=== PATIENT | female | born 1975 | race American Indian/Alaskan Native ===

== ENCOUNTER 2019-08-01 17:12 | Emergency (ER) | payer SELFPAY ==
[2019-08-01] MEDS ORDERED: ASPIRIN PO ONE (17:34)
[2019-08-01 17:36] VITALS: BP 111/68
--- NOTE | 2019-08-01 17:36 | Event Note ---
ED Screening Note Date of service: 08/01/19 Time: 17:33 ED Screening Note: This is a 43 y.o. F. that presents to the ER with chest pain radiating to back x 1 week. PMH of anemia Reports dizziness and SOB This initial assessment/diagnostic orders/clinical plan/treatment(s) is/are subject to change based on patients health status, clinical progression and re- assessment by fellow clinical providers in the ED. Further treatment and workup at subsequent clinical providers discretion. Patient/guardian urged not to elope from the ED as their condition may be serious if not clinically assessed and managed. Initial orders include: Labs, EKG, & CXR
--- NOTE | 2019-08-01 18:09 | XRay Report ---
CHEST 2 VIEWS INDICATION / CLINICAL INFORMATION: Chest Pain. COMPARISON: None available. FINDINGS: SUPPORT DEVICES: None. HEART / MEDIASTINUM: No significant abnormality. LUNGS / PLEURA: No significant pulmonary or pleural abnormality. .No pneumothorax. ADDITIONAL FINDINGS: No significant additional findings. IMPRESSION: 1. No acute findings. Signer Name: Devaughn Beal MD Signed: 08/01/2019 6:04 PM Workstation Name: [id number]
== END 2019-08-01 18:00 | disposition left against medical advice (07) ==
LOC: ED 17:12
DX: R07.89 Other chest pain (principal); Z53.21 Procedure and treatment not carried out due to patient leaving prior to being seen by health care provider
CPT/HCPCS: 71045; 93005; 93010

== ENCOUNTER 2019-08-03 20:03 | Emergency (ER) | payer OTHER ==
--- NOTE | 2019-08-03 20:59 | Event Note ---
ED Screening Note Date of service: 08/03/19 Time: 20:59 ED Screening Note: This is a 43 y.o. F. that presents to the EAR with palpitations and chest pain x 1 week. Patient states both parents have CAD and stents placed and fearful. Reports pain is substernal and radiating to back, cramping sensation. Taken antacids with no improvement. This initial assessment/diagnostic orders/clinical plan/treatment(s) is/are subject to change based on patients health status, clinical progression and re- assessment by fellow clinical providers in the ED. Further treatment and workup at subsequent clinical providers discretion. Patient/guardian urged not to elope from the ED as their condition may be serious if not clinically assessed and managed. Initial orders include: Labs, EKG, & CXR
[2019-08-03] MEDS ORDERED: ASPIRIN PO ONE (21:02)
[2019-08-03 21:32] LABS: Mean Corpuscular HGB Conc 29 % (30-34); Platelet Count 384 K/mm3 (140-440); Red Blood Count 4.75 M/mm3 (3.65-5.03)
[2019-08-03 21:33] LABS: Hematocrit 27.6 % (30.3-42.9); Hemoglobin 8.1 gm/dl (10.1-14.3); Mean Corpuscular Volume 58 fl (79-97); Red Cell Distribution Width 20.6 % (13.2-15.2)
[2019-08-03 21:39] LABS: BUN/Creatinine Ratio 14; Blood Urea Nitrogen 11 mg/dL (7-17); Calcium 9.1 mg/dL (8.4-10.2); Hemolysis Index 1
[2019-08-03 22:04] LABS: Anisocytosis 1+; Basophils % (Manual) 0 % (0.0-1.8); Hypochromasia 2+; Total Cells Counted 100
--- NOTE | 2019-08-04 00:10 | Emergency Department Report ---
ED General Adult HPI - General Chief complaint: Arrhythmia/Palpitations Stated complaint: HEART FLUTTERING, LIGHT HEADED, CHEST PAINS, SOB Time Seen by Provider: 08/03/19 20:58 Source: patient Mode of arrival: Ambulatory Limitations: No Limitations - History of Present Illness Initial comments: Patient is a 43-year-old female that presents emergency room with complaints of epigastric pain, lightheadedness, palpitations and shortness of breath. Patient states her epigastric pain and lightheadedness and palpitations for one week. Patient states her shortness breath while 2 days. Patient denies pain at this time. Patient states that while she was sitting in the waiting room she had a large burp and all of her symptoms improved. Patient states she has a history of anemia. Patient states she is unable to tolerate ferrous sulfate. Patient states her symptoms are worse with eating fried foods and coffee and better with rest and water. -: Gradual Location: abdomen Severity scale (0 -10): 0 Quality: burning Consistency: now resolved Improves with: rest, other Worsens with: eating Associated Symptoms: shortness of breath. denies: confusion, chest pain, cough, diaphoresis, fever/chills, headaches, loss of appetite, malaise, nausea/vomitin g, rash, seizure, syncope, weakness Treatments Prior to Arrival: none - Related Data Previous Rx's Medication Instructions Recorded Last Taken Type Esomeprazole Magnesium [NexIUM] 40 mg PO QDAY 30 Days #30 08/04/[address] Renato Lloyd,Ps/Folic/Bcomp,C No.9 1 each PO BID 30 Days #60 capsule 08/04/19 Unknown Rx [Integra Plus Capsule] Allergies Allergy/AdvReac Type Severity Reaction Status Date / Time sulfamethoxazole Allergy Hives Verified 08/01/19 17:17 [From Bactrim] trimethoprim [From Bactrim] Allergy Hives Verified 08/01/19 17:17 ED Review of Systems ROS: Stated complaint: HEART FLUTTERING, LIGHT HEADED, CHEST PAINS, SOB Other details as noted in HPI Constitutional: denies: chills, fever Eyes: denies: eye pain, eye discharge, vision change ENT: denies: ear pain, throat pain Respiratory: shortness of breath. denies: cough, wheezing Cardiovascular: denies: chest pain, palpitations Endocrine: no symptoms reported Gastrointestinal: abdominal pain. denies: nausea, vomiting, diarrhea, constipation, hematemesis, melena, hematochezia Genitourinary: denies: urgency, dysuria, discharge Musculoskeletal: denies: back pain, joint swelling, arthralgia Skin: denies: rash, lesions Neurological: denies: headache, weakness, paresthesias Psychiatric: denies: anxiety, depression Hematological/Lymphatic: denies: easy bleeding, easy bruising ED Past Medical Hx - Past Medical History Previous Medical History?: Yes Additional medical history: Anemia - Surgical History Past Surgical History?: No - Family History Family history: no significant - Social History Smoking Status: Never Smoker Substance Use Type: None - Medications Home Medications: Home Medications Medication Instructions Recorded Confirmed Last Taken Type Esomeprazole Magnesium [NexIUM] 40 mg PO QDAY 30 Days #30 08/04/[address] Renato Lloyd,Ps/Folic/Bcomp,C No.9 1 each PO BID 30 Days #60 capsule 08/04/19 Unkno wn Rx [Integra Plus Capsule] ED Physical Exam - General Limitations: No Limitations General appearance: alert, in no apparent distress - Head Head exam: Present: atraumatic, normocephalic - Eye Eye exam: Present: normal appearance - ENT ENT exam: Present: mucous membranes moist - Neck Neck exam: Present: normal inspection - Respiratory Respiratory exam: Present: normal lung sounds bilaterally. Absent: respiratory distress - Cardiovascular Cardiovascular Exam: Present: regular rate, normal rhythm. Absent: systolic murmur, diastolic murmur, rubs, gallop - GI/Abdominal GI/Abdominal exam: Present: soft, tenderness (mild epigastric tenderness), normal bowel sounds - Extremities Exam Extremities exam: Present: normal inspection - Back Exam Back exam: Present: normal inspection - Neurological Exam Neurological exam: Present: alert, oriented X3 - Psychiatric Psychiatric exam: Present: normal affect, normal mood - Skin Skin exam: Present: warm, dry, intact, normal color. Absent: rash ED Course Vital Signs 08/03/19 08/03/19 08/04/19 20:47 21:00 00:33 Temperature 98.7 F 98.7 F Pulse Rate 98 H 98 H 90 Respiratory 16 20 18 Rate Blood Pressure 106/67 Blood Pressure 106/67 119/73 [Right] O2 Sat by Pulse 100 100 Oximetry 08/04/19 00:34 Temperature Pulse Rate Respiratory 18 Rate Blood Pressure Blood Pressure [Right] O2 Sat by Pulse Oximetry - Reevaluation(s) Reevaluation #1: I discussed all results with patient. Patient is stable for discharge. Patient will be discharged home. Patient agrees with plan of care. Patient given discharge instructions. Patient voiced understanding discharge instructions. 08/04/19 00:14 pt states her stomach is feeling better after the GI cocktail. 08/04/19 00:30 ED Medical Decision Making - Lab Data Result diagrams: 08/03/19 21:06 08/03/19 21:06 - EKG Data -: EKG Interpreted by Me EKG shows normal: sinus rhythm, axis, intervals, QRS complexes, ST-T waves Rate: normal - Medical Decision Making Patient is a 43-year-old female that presents emergency room for multiple complaints including epigastric pain, palpitations, shortness of breath and lightheadedness. Symptoms all appear to be secondary to anemia and acid reflux. Patient found to have mild tenderness over the epigastrium. Patient has lots of burping and bloating sensations. Patient stated after burping that her symptoms improved. Patient states she had a long history of anemia and unable to tolerate most forms of iron. Patient states she is able to tolerate Integra plus. Patient states she is noncompliant with her iron at this time. Patient's EKG is negative. Patient's labs unremarkable except for anemia. Cardiac workup negative. - Differential Diagnosis epigastric pain, gastritis., GERD. sob. anemia. Lightheadedness, Critical care attestation.: If time is entered above; I have spent that time in minutes in the direct care of this critically ill patient, excluding procedure time. ED Disposition Clinical Impression: SOB (shortness of breath), Epigastric pain, Palpitations Anemia Qualifiers: Anemia type: unspecified type Qualified Code(s): D64.9 - Anemia, unspecified Gastritis Qualifiers: Gastritis type: unspecified gastritis Chronicity: acute Gastritis bleeding: without bleeding Qualified Code(s): K29.00 - Acute gastritis without bleeding Disposition: TO HOME OR SELFCARE Is pt being admited?: No Does the pt Need Aspirin: No Condition: Stable Instructions: Gastritis (ED), Diet for Ulcers and Gastritis (ED), Iron Deficiency Anemia (ED), Gastroesophageal Reflux Disease (ED), Anemia (ED) Additional Instructions: Patient to follow up with primary care in 2-3 days. Patient to follow-up with gastroenterology in 2-3 days. Patient to follow-up with primary care for CBC recheck. Patient to return to ER if condition worsens. Patient to take meds as directed. Patient increase water. Patient to eat a reflux diet. Patient to avoid ibuprofen. Patient to take Tylenol when necessary for pain. Prescriptions: Iron Fum,Ps/Folic/Bcomp,C No.9 [Integra Plus Capsule] 1 each PO BID 30 Days #60 capsule Esomeprazole Magnesium [NexIUM] 40 mg PO QDAY 30 Days #30 capsule.dr Referrals: T[facility] MD JEROME [Primary Care Provider] - 2-3 Days COLETTE DENT MD [Staff Physician] - 2-3 Days Time of Disposition: 00:21
[2019-08-04] MEDS ORDERED: ALUM-MAG HYDROX-SIMETH 200-200-20MG/5ML PO ONE (00:16)
[2019-08-04] MEDS ORDERED: LIDOCAINE VISCOUS 2% PO ONE (00:16)
[2019-08-04] MEDS ORDERED: ALUM-MAG HYDROX-SIMETH 200-200-20MG/5ML ONE (00:18)
[2019-08-04] MEDS ORDERED: LIDOCAINE VISCOUS 2% ONE (00:19)
[2019-08-04 00:34] VITALS: BP 119/73
== END 2019-08-04 01:02 | disposition home or self-care (01) ==
LOC: ED 20:03
DX: K29.70 Gastritis, unspecified, without bleeding (principal); R06.02 Shortness of breath; R00.2 Palpitations; D64.9 Anemia, unspecified; Z79.899 Other long term (current) drug therapy; Z88.2 Allergy status to sulfonamides; Z88.8 Allergy status to other drugs, medicaments and biological substances
CPT/HCPCS: 36415; 80048; 84484; 84703; 85007; 85025; 93005; 93010